=== PATIENT | female | born 1955 | race Caucasian/White ===

== ENCOUNTER 2017-01-08 03:29 | Emergency (ER) | payer BC ==
[~2017-01-08] VITALS: Ht 160 cm; Wt 56.8 kg
[~2017-01-08 03:29] MED LIST: Z.0.NO CURRENT MEDS
[2017-01-08 03:34] VITALS: BP 124/66; PULSE 65; RESP 16; TEMP 98.5; O2SAT 99
--- NOTE | 2017-01-08 04:28 | PD ---
HPI Chief Complaint: ENT Complaint Time Seen by Provider: 04:12 Travel History International Travel<30 days: No Contact w/Intl Traveler<30days: No Traveled to known affect area: No History of Present Illness HPI The patient is a 61-year-old female that complains of sore throat and right ear pain for 12 hours. She denies any cough or fever. She denies any abdominal pain. She denies any voice change. PFSH Past Medical History ?: Not Past Surgical History Gynecologic Surgery: Yes (2 C-SECTIONS) Hysterectomy: Yes Social History Alcohol Use: Yes (OCCASIONALLY) Tobacco Use: No Substance Use: No Allergies-Medications (Allergen,Severity, Reaction): Uncoded Allergies: VICODIN (Allergy, Severe, 09/17/06) VICODAN (Allergy, Intermediate, ITCHING, 01/08/17) Reported Meds & Prescriptions Reported Meds & Active Scripts Active Reported No Current Meds (Miscellaneous Medication) Misc Review of Systems Except as stated in HPI: all other systems reviewed are Neg Physical Exam Narrative GENERAL: Well-nourished, well-developed patient in slight apparent distress with her sore throat and right ear pain. Her vital signs are normal. SKIN: Focused skin assessment warm/dry. HEAD: Normocephalic. EYES: No scleral icterus. No injection or drainage. NECK: Supple, trachea midline. No JVD or lymphadenopathy. CARDIOVASCULAR: Regular rate and rhythm without murmurs, gallops, or rubs. RESPIRATORY: Breath sounds equal bilaterally. No accessory muscle use. Lungs clear to auscultation bilaterally. GASTROINTESTINAL: Abdomen soft, non-tender, nondistended. MUSCULOSKELETAL: No cyanosis, or edema. BACK: Nontender without obvious deformity. No CVA tenderness. ENT: The throat is erythematous without exudate or abscess. The left tympanic membrane and canal are normal. The right tympanic membrane had a small film of wax that occluded the canal and prevented me from seeing the tympanic membrane. Right ear will be irrigated. After irrigating the right ear and using the curette I was able to see the right tympanic membrane and it is normal. Both tympanic membranes are normal. Both canals are normal. Data Data Last Documented VS Vital Signs Date Time Temp Pulse Resp B/P Pulse Ox O2 Delivery O2 Flow Rate FiO2 01/08/17 03:40 16 01/08/17 03:34 98.5 65 124/66 99 Room Air Orders Group A Rapid Strep Screen (01/08/17 03:42) Strep Culture (Group A) (01/08/17 03:45) MDM Medical Decision Making Medical Screen Exam Complete: Yes Emergency Medical Condition: Yes Medical Record Reviewed: Yes Differential Diagnosis Otitis media, otitis externa, pneumonia, bronchitis, strep pharyngitis, viral pharyngitis Narrative Course The patient appears to have a viral pharyngitis. She is symptomatic and will be given prednisone on an 8 day tapered course. The right ear pain appears to be from the sore throat and possible blockage of the eustachian tube. Diagnosis Primary Impression: Viral pharyngitis Additional Instructions: The prednisone is one tablet twice daily for 4 days followed by one tablet once daily for 4 days. Follow-up with your primary care physician next week. Drink plenty of liquids and use warm saltwater gargles. Med/Other Pt SpecificInfo: Prescription(s) given Scripts Prednisone 50 Mg Tab50 Mg PO BID #12 TAB Ref 0 Prov:Phoenix Wade MD 01/08/17 Disposition: 01 DISCHARGE HOME Condition: Stable Phoenix Wade MD Jan 08, 2017 04:28
[2017-01-08] MEDS ORDERED: PRED50 PO (04:47)
== END 2017-01-08 04:54 | disposition home or self-care (01) ==
LOC: PHED 03:29
DX: J02.8 Acute pharyngitis due to other specified organisms (principal); H92.01 Otalgia, right ear
CPT/HCPCS: 87081; 87880; 99283